=== PATIENT | male | born 1955 | race Caucasian/White ===

== ENCOUNTER 2018-07-15 09:32 | Inpatient (IN) ==
[2018-07-15] MEDS ORDERED: DILTIAZEM 50 MG/10 ML VIAL IV STA (10:03)
[2018-07-15] MEDS ORDERED: MAGNESIUM SULF RIDER 2 GM in PREMIX 1 EACH IV STA (10:03)
[2018-07-15] MEDS ORDERED: SODIUM CHLORIDE 0.9% 1,000 ML IV STA (10:03)
[2018-07-15] MEDS ORDERED: SODIUM CHLORIDE 0.9% 100 ML IV ONE (10:04)
[2018-07-15] MEDS ORDERED: DILTIAZEM 100 MG VIAL.ADD IV ONE (10:04)
[2018-07-15] MEDS ORDERED: DILTIAZEM 25 MG/5 ML VIAL IV ONE (10:04)
[2018-07-15 10:29] LABS: Basophils # 0.1 10*3/uL (0.0-0.2); Basophils % 0.5 % (0.0-0.8); Eosinophils # 0.1 10*3/uL (0.0-0.87); Eosinophils % 1.1 % (0.00-10.9); Hematocrit 35.3 VOL% (42.0-52.0); Hemoglobin 11.8 GM/DL (14.0-18.0); Immature Granulocytes % 0.4 %; Immature Granulocytes Absolute 0.04 #; Lymphocytes # 2.7 10*3/uL (1.4-4.0); Lymphocytes % 26.7 % (21.2-54.2); Mean Corpuscular HGB Conc 33.4 GM/DL (32-36); Mean Corpuscular Hemoglobin 33 PG (27-34); Mean Platelet Volume 9.9 FL (9.6-12.0); Monocytes # 1.1 10*3/uL (0.11-0.8); Monocytes % 10.7 % (1.7-12.7); Neutrophils # 6.1 10*3/uL (1.4-7.4); Neutrophils % 60.6 % (38.7-73.9); Platelet Count 169 T/CUMM (130-400); Red Blood Count 3.53 MC/CUMM (3.8-5.5); Red Cell Distribution Width 14.2 % (9.3-17.3)
[2018-07-15] MEDS ORDERED: DILTIAZEM INJ 100 MG in SODIUM CHLORIDE 0.9% 100 ML IV SCH (10:30)
[2018-07-15 11:15] LABS: Albumin 2.8 G/DL (3.4-5.0); Bilirubin,Total 0.6 MG/DL (0.2-1.0); Osmolality,Calculated 276.7 MOS/KG (273-304); Potassium 3.9 MMOL/L (3.5-5.1); Thyroid Stimulating Hormone 1.27 uIU/ml (0.358-3.74); Total Protein 6.5 G/DL (6.4-8.3)
[2018-07-15] MEDS ORDERED: ACETAMINOPHEN 325 MG TABLET PO PRN (11:59)
[2018-07-15] MEDS ORDERED: ONDANSETRON 4 MG/2 ML VIAL IV PRN (11:59)
[2018-07-15] MEDS ORDERED: PANTOPRAZOLE 40 MG VIAL IV SCH (12:00)
[2018-07-15] MEDS ORDERED: ENOXAPARIN 40 MG/0.4 ML SYRINGE SUBCUT SCH (12:00)
[2018-07-15] MEDS ORDERED: traZODone 50 MG TABLET PO PRN (12:48)
[2018-07-15] MEDS ORDERED: HALOPERIDOL 5 MG/ML AMP IM PRN ×2 (12:49→16:29)
[2018-07-15] MEDS: DEXTROSE 5% NACL 0.9% 1,000 ML IV SCH ×2 (13:17→21:27)
[2018-07-15] MEDS: DILTIAZEM 30 MG TABLET PO SCH ×3 (13:44→23:41)
[2018-07-15] MEDS: ENOXAPARIN 80 MG/0.8 ML SYRINGE SUBCUT SCH (13:44)
[2018-07-15] MEDS: LORazepam 2 MG/1 ML VIAL IV PRN ×5 (13:45→18:54)
[2018-07-15] MEDS: chlordiazePOXIDE 25 MG CAPSULE PO SCH ×2 (14:41→23:41)
[2018-07-15] MEDS: NICOTINE 7 MG/24 HR PATCH TRANSDERM SCH (15:42)
[2018-07-15 15:49] LABS: Barbiturates Screen,Urine Negative (Negative); Benzodiazepines Screen,Urine Positive (Negative); Cannabinoid Screen,Urine Negative (Negative); Opiate Screen,Urine Positive (Negative); Phencyclidine Screen,Urine Negative (Negative)
[2018-07-15] MEDS ORDERED: LORazepam 2 MG/1 ML VIAL IV PRN (15:52)
[2018-07-15] MEDS: ZIPRASIDONE 20 MG/1 ML VIAL IM PRN (18:54)
[2018-07-15] MEDS: QUEtiapine 100 MG TABLET PO SCH (23:41)
[2018-07-16] MEDS: ENOXAPARIN 80 MG/0.8 ML SYRINGE SUBCUT SCH (01:17)
[2018-07-16] MEDS: ZIPRASIDONE 20 MG/1 ML VIAL IM PRN ×3 (03:28→17:01)
[2018-07-16 03:33] LABS: Basophils % 0.5 % (0.0-0.8); Eosinophils # 0.3 10*3/uL (0.0-0.87); Eosinophils % 4.4 % (0.00-10.9); Immature Granulocytes % 0.2 %; Immature Granulocytes Absolute 0.01 #; Lymphocytes # 2.5 10*3/uL (1.4-4.0); Lymphocytes % 41.1 % (21.2-54.2); Mean Corpuscular Hemoglobin 33 PG (27-34); Mean Platelet Volume 10.5 FL (9.6-12.0); Monocytes # 0.6 10*3/uL (0.11-0.8); Monocytes % 9.7 % (1.7-12.7); Neutrophils # 2.7 10*3/uL (1.4-7.4); Neutrophils % 44.1 % (38.7-73.9); Platelet Count 178 T/CUMM (130-400); Red Blood Count 2.94 MC/CUMM (3.8-5.5); Red Cell Distribution Width 14.2 % (9.3-17.3); White Blood Count 6.1 T/CUMM (4-12)
[2018-07-16 03:34] LABS: Hematocrit 29.7 VOL% (42.0-52.0); Hemoglobin 9.8 GM/DL (14.0-18.0)
[2018-07-16 03:43] LABS: Albumin 2.3 G/DL (3.4-5.0); Bilirubin,Total 0.4 MG/DL (0.2-1.0); Osmolality,Calculated 278.4 MOS/KG (273-304); Potassium 3.4 MMOL/L (3.5-5.1); Total Protein 5.9 G/DL (6.4-8.3)
[2018-07-16] MEDS: DEXTROSE 5% NACL 0.9% 1,000 ML IV SCH ×2 (05:03→07:25)
[2018-07-16] MEDS ORDERED: INFLUENZA VIRUS VACCINE 0.5 ML SYRINGE IM ONE (07:00)
[2018-07-16] MEDS: chlordiazePOXIDE 25 MG CAPSULE PO SCH ×2 (08:11→14:15)
[2018-07-16] MEDS: DILTIAZEM 30 MG TABLET PO SCH (08:11)
[2018-07-16] MEDS: QUEtiapine 100 MG TABLET PO SCH (08:12)
[2018-07-16] MEDS: NICOTINE 7 MG/24 HR PATCH TRANSDERM SCH (08:12)
[2018-07-16] MEDS: SERTRALINE 50 MG TABLET PO SCH (08:12)
[2018-07-16] MEDS ORDERED: busPIRone 10 MG TABLET PO PRN (08:18)
[2018-07-16] MEDS: PANTOPRAZOLE 40 MG TABLET PO SCH (11:03)
[2018-07-16] MEDS: ASPIRIN EC 81 MG TABLET PO SCH (11:03)
[2018-07-16] MEDS: ENOXAPARIN 40 MG/0.4 ML SYRINGE SUBCUT SCH (11:52)
[2018-07-16] MEDS: POTASSIUM CHLORIDE 20 MEQ TABLET PO PRN ×3 (11:52→17:29)
[2018-07-16] MEDS ORDERED: DILTIAZEM 30 MG TABLET PO SCH (21:00)
[2018-07-17] MEDS: QUEtiapine 100 MG TABLET PO SCH ×2 (00:54→08:58)
[2018-07-17] MEDS: chlordiazePOXIDE 25 MG CAPSULE PO SCH ×2 (00:54→08:58)
[2018-07-17 04:57] LABS: Basophils # 0.1 10*3/uL (0.0-0.2); Basophils % 0.9 % (0.0-0.8); Eosinophils # 0.3 10*3/uL (0.0-0.87); Eosinophils % 4.7 % (0.00-10.9); Hematocrit 34.6 VOL% (42.0-52.0); Hemoglobin 11.3 GM/DL (14.0-18.0); Immature Granulocytes % 0.2 %; Immature Granulocytes Absolute 0.01 #; Lymphocytes # 2.1 10*3/uL (1.4-4.0); Lymphocytes % 37.4 % (21.2-54.2); Mean Corpuscular HGB Conc 32.7 GM/DL (32-36); Mean Corpuscular Hemoglobin 33 PG (27-34); Mean Corpuscular Volume 100.9 FL (87-102); Monocytes # 0.6 10*3/uL (0.11-0.8); Monocytes % 10.1 % (1.7-12.7); Neutrophils # 2.6 10*3/uL (1.4-7.4); Neutrophils % 46.7 % (38.7-73.9); Platelet Count 227 T/CUMM (130-400); Red Blood Count 3.43 MC/CUMM (3.8-5.5); Red Cell Distribution Width 14.2 % (9.3-17.3); White Blood Count 5.5 T/CUMM (4-12)
[2018-07-17 05:11] LABS: Calcium 8.2 MG/DL (8.5-10.1); Osmolality,Calculated 275.4 MOS/KG (273-304)
[2018-07-17] MEDS: DEXTROSE 5% NACL 0.9% 1,000 ML IV SCH (07:41)
[2018-07-17] MEDS: PANTOPRAZOLE 40 MG TABLET PO SCH (08:58)
[2018-07-17] MEDS: ENOXAPARIN 40 MG/0.4 ML SYRINGE SUBCUT SCH (08:58)
[2018-07-17] MEDS: ASPIRIN EC 81 MG TABLET PO SCH (08:58)
[2018-07-17] MEDS: NICOTINE 7 MG/24 HR PATCH TRANSDERM SCH (08:59)
[2018-07-17] MEDS: SERTRALINE 50 MG TABLET PO SCH (08:59)
[2018-07-17] MEDS ORDERED: DILTIAZEM CD 120 MG CAPSULE PO SCH (09:00)
[2018-07-17 11:50] VITALS: BP 98/60
== END 2018-07-17 14:35 | DRG 309 ==
LOC: N.ED 09:32 → N.EDINP 11:59 → SUATTDRO 11:59 → N.ICU 12:22 → N.2E 07-16 10:47
PROVIDERS: ADMIT Internal Medicine; ATTEND Internal Medicine

== ENCOUNTER 2018-12-06 18:32 | Observation (INO) ==
[2018-12-06] MEDS ORDERED: FLUMAZENIL 1 MG/10 ML VIAL IV STA (18:50)
[2018-12-06] MEDS ORDERED: ONDANSETRON 4 MG/2 ML VIAL IV STA (18:50)
[2018-12-06] MEDS ORDERED: SODIUM CHLORIDE 0.9% 1,000 ML IV STA (18:50)
[2018-12-06] MEDS ORDERED: ALBUTEROL NEB SOLN 5 MG/ML 20 ML/BOTTLE CONT NEB STA (18:53)
[2018-12-06] MEDS ORDERED: FLUMAZENIL 0.5 MG/5 ML VIAL IV ONE (19:20)
[2018-12-06 19:26] LABS: Basophils # 0.1 10*3/uL (0.0-0.2); Basophils % 0.5 % (0.0-0.8); Eosinophils # 0.2 10*3/uL (0.0-0.87); Eosinophils % 1.7 % (0.00-10.9); Hematocrit 38.6 VOL% (42.0-52.0); Hemoglobin 12.6 GM/DL (14.0-18.0); Immature Granulocytes % 0.3 %; Immature Granulocytes Absolute 0.03 #; Lymphocytes # 3.9 10*3/uL (1.4-4.0); Lymphocytes % 41.2 % (21.2-54.2); Mean Corpuscular HGB Conc 32.6 GM/DL (32-36); Mean Corpuscular Hemoglobin 33 PG (27-34); Mean Corpuscular Volume 100.3 FL (87-102); Mean Platelet Volume 9.7 FL (9.6-12.0); Monocytes # 0.8 10*3/uL (0.11-0.8); Monocytes % 8.1 % (1.7-12.7); Neutrophils # 4.6 10*3/uL (1.4-7.4); Neutrophils % 48.2 % (38.7-73.9); Platelet Count 206 T/CUMM (130-400); Red Blood Count 3.85 MC/CUMM (3.8-5.5); Red Cell Distribution Width 15.1 % (9.3-17.3); White Blood Count 9.5 T/CUMM (4-12)
[2018-12-06 19:40] LABS: PT Patient Result 10.5 SECS
[2018-12-06 19:46] LABS: Acetaminophen < 2.0 UG/ML (10-30); Salicylate < 2.8 MG/DL (2.8-20)
[2018-12-06 19:47] LABS: Alanine Aminotransferase 18 U/L (16-61); Albumin 3.4 G/DL (3.4-5.0); Alkaline Phosphatase 60 U/L (45-117); Aspartate Amino Transferase 10 U/L (0-37); Bilirubin,Total < 0.39 MG/DL (0.2-1.0); Blood Urea Nitrogen 19 MG/DL (7-18); Glucose 114 MG/DL (74-106); Osmolality,Calculated 285.1 MOS/KG (273-304); Potassium 3.8 MMOL/L (3.5-5.1); Sodium 142 MMOL/L (136-145); Total Protein 6.9 G/DL (6.4-8.3)
[2018-12-06 19:49] LABS: Troponin I < 0.015 NG/ML (0.00-0.045)
[2018-12-06 21:26] LABS: Apearance,Urine CLEAR (Clear); Bilirubin,Urine Negative (Negative); Blood, Urine Negative (Negative); Glucose,Urine (UA) Negative (Negative); Hyaline Casts,Urine 1 /LPF (0-3); Ketones,Urine Negative (Negative); Mucus,Urine Occasional /LPF (Occasional); Nitrite,Urine Negative (Negative); Protein,Urine Negative; RBC,Urine 2 /HPF (0-4); Squamous Epithelial Cell,Urine Occasional /HPF (0-10); Urine Color Yellow (Yellow); Urine Specific Gravity 1.032 (1.001-1.035); Urine Urobilinogen < 2.0 EU/DL (0.2-1.0); WBC,Urine <1 /HPF (0-6)
[2018-12-06 21:54] LABS: Barbiturates Screen,Urine Negative (Negative); Benzodiazepines Screen,Urine Positive (Negative); Cannabinoid Screen,Urine Negative (Negative); Opiate Screen,Urine Negative (Negative); Phencyclidine Screen,Urine Negative (Negative)
[2018-12-06] MEDS ORDERED: ONDANSETRON 4 MG/2 ML VIAL IV PRN (23:24)
[2018-12-06] MEDS ORDERED: DEXTROSE 50% 25 GM/50 ML SYRINGE IV PRN (23:28)
[2018-12-06] MEDS ORDERED: GLUCAGON 1 MG VIAL IM PRN (23:28)
[2018-12-06] MEDS ORDERED: SODIUM CHLORIDE 0.9% 1,000 ML IV SCH (23:30)
[2018-12-07] MEDS: INSULIN REGULAR 100 UNIT/ML SUBCUT SCH ×4 (02:11→16:27)
[2018-12-07] MEDS ORDERED: ENOXAPARIN 40 MG/0.4 ML SYRINGE SUBCUT SCH (08:00)
[2018-12-07 08:09] LABS: Basophils # 0.1 10*3/uL (0.0-0.2); Basophils % 0.7 % (0.0-0.8); Eosinophils # 0.3 10*3/uL (0.0-0.87); Eosinophils % 3.7 % (0.00-10.9); Hemoglobin 11.6 GM/DL (14.0-18.0); Immature Granulocytes % 0.1 %; Immature Granulocytes Absolute 0.01 #; Lymphocytes # 3.7 10*3/uL (1.4-4.0); Mean Corpuscular HGB Conc 32.2 GM/DL (32-36); Mean Corpuscular Hemoglobin 33 PG (27-34); Mean Corpuscular Volume 101.1 FL (87-102); Monocytes # 0.5 10*3/uL (0.11-0.8); Monocytes % 7.3 % (1.7-12.7); Neutrophils # 2.6 10*3/uL (1.4-7.4); Neutrophils % 36.2 % (38.7-73.9); Platelet Count 183 T/CUMM (130-400); Red Blood Count 3.56 MC/CUMM (3.8-5.5); Red Cell Distribution Width 15.4 % (9.3-17.3); White Blood Count 7.1 T/CUMM (4-12)
[2018-12-07 08:35] LABS: Acanthocytes Few; Atypical Lymphocytes Few; Eosinophils 2 % (0-10); Hypochromasia 1+; Lymphocytes 49 % (20-55); Macrocytosis Slight; Segmented Neutrophils 41 % (50-85); Total Cells Counted 100
[2018-12-07 08:36] LABS: Howell-Jolly Bodies Slight
[2018-12-07 08:37] LABS: Platelet Estimate Adequate
[2018-12-07 08:54] LABS: Calcium 8.2 MG/DL (8.5-10.1); Osmolality,Calculated 282.1 MOS/KG (273-304); Potassium 4.1 MMOL/L (3.5-5.1); Risk Ratio 2.72; Thyroid Stimulating Hormone 2.25 uIU/ml (0.358-3.74)
[2018-12-07] MEDS ORDERED: NICOTINE 14 MG/24 HR PATCH TRANSDERM SCH (09:00)
[2018-12-07] MEDS ORDERED: PANTOPRAZOLE 40 MG TABLET PO SCH (09:00)
[2018-12-07] MEDS ORDERED: NICOTINE 21 MG/24 HR PATCH TRANSDERM SCH (11:00)
[2018-12-07 12:12] VITALS: BP 99/53
[2018-12-07] MEDS ORDERED: DICLOFENAC POTASSIUM 50 MG PO SCH (21:00)
[2018-12-07] MEDS ORDERED: busPIRone 10 MG TABLET PO SCH (21:00)
[2018-12-07] MEDS ORDERED: QUEtiapine 100 MG TABLET PO SCH (21:00)
[2018-12-08] MEDS ORDERED: MEMANTINE 5 MG TABLET PO SCH (09:00)
[2018-12-08] MEDS ORDERED: DILTIAZEM CD 120 MG CAPSULE PO SCH (09:00)
[2018-12-08] MEDS ORDERED: SERTRALINE 50 MG TABLET PO SCH (09:00)
[2018-12-08] MEDS ORDERED: DONEPEZIL 5 MG TABLET PO SCH (09:00)
[2018-12-08] MEDS ORDERED: ASPIRIN EC 81 MG TABLET PO SCH (09:00)
== END 2018-12-07 18:00 ==
LOC: EDBD → EDUNIT# → N.ED 18:32 → N.EDINP 18:32 → N.2E 12-07 00:41
PROVIDERS: ADMIT Internal Medicine; ATTEND Internal Medicine

== ENCOUNTER 2020-12-16 12:57 | Inpatient (IN) ==
[2020-12-16 13:58] LABS: Basophils # 0.1 10*3/uL (0.0-0.2); Basophils % 0.5 % (0.0-0.8); Eosinophils # 0.4 10*3/uL (0.0-0.87); Eosinophils % 1.9 % (0.00-10.9); Hematocrit 43.9 VOL% (42.0-52.0); Hemoglobin 14.8 GM/DL (14.0-18.0); Immature Granulocytes Absolute 2.59 #; Lymphocytes # 5.1 10*3/uL (1.4-4.0); Lymphocytes % 25.5 % (21.2-54.2); Mean Corpuscular HGB Conc 33.7 GM/DL (32-36); Mean Corpuscular Volume 101.6 FL (87-102); Mean Platelet Volume 10.5 FL (9.6-12.0); Monocytes % 9.2 % (1.7-12.7); NRBC # 0.18 10*3/uL; Neutrophils % 49.9 % (38.7-73.9); Platelet Count 169 T/CUMM (130-400); Red Blood Count 4.32 MC/CUMM (3.8-5.5); Red Cell Distribution Width 14.4 % (9.3-17.3); White Blood Count 19.9 T/CUMM (4-12)
[2020-12-16 14:11] LABS: PT Patient Result 10.9 SECS (9.8-11.9)
[2020-12-16 14:15] LABS: Alanine Aminotransferase 36 U/L (16-61); Albumin 2.8 G/DL (3.4-5.0); Alkaline Phosphatase 98 U/L (45-117); Aspartate Amino Transferase 57 U/L (0-37); Bilirubin,Total < 0.39 MG/DL (0.2-1.0); Blood Urea Nitrogen 19 MG/DL (7-18); Calcium 8.8 MG/DL (8.5-10.1); Carbon Dioxide 28 MMOL/L (21-32); Estimated Glom Filtration Rate 101 ML/MIN; Glucose 82 MG/DL (74-106); Osmolality,Calculated 279.4 MOS/KG (273-304); Potassium 4.1 MMOL/L (3.5-5.1); Sodium 140 MMOL/L (136-145)
[2020-12-16 14:27] LABS: Band Neutrophils 13 % (0-10); Eosinophils 2 % (0-10); Nucleated Red Blood Cells 2 (0-5); Total Cells Counted 100
[2020-12-16 14:37] LABS: Lymphocytes 34 % (20-55); Metamyelocytes 2 %; Myelocytes 2 %; Segmented Neutrophils 47 % (50-85)
[2020-12-16 14:38] LABS: Polychromasia 1+
[2020-12-16 14:39] LABS: Ovalocytes Few; Platelet Estimate Normal
[2020-12-16] MEDS ORDERED: ONDANSETRON 4 MG/2 ML VIAL IV PRN (15:57)
[2020-12-16] MEDS ORDERED: GLUCAGON 1 MG VIAL IM PRN (15:57)
[2020-12-16] MEDS ORDERED: DEXTROSE 50% 25 GM/50 ML VIAL IV PRN (15:57)
[2020-12-16] MEDS: DONEPEZIL 10 MG TABLET PO SCH (21:18)
[2020-12-16] MEDS: ATORVASTATIN 10 MG TABLET PO SCH (21:18)
[2020-12-16] MEDS: ARIPiprazole 10 MG TABLET PO SCH (21:18)
[2020-12-16] MEDS: MELATONIN 3 MG TABLET PO SCH (21:18)
[2020-12-16] MEDS: AMIODARONE 200 MG TABLET PO SCH (21:18)
[2020-12-16] MEDS: INSULIN REGULAR 100 UNIT/ML SUBCUT SCH (21:23)
[2020-12-17 05:52] LABS: Basophils # 0.1 10*3/uL (0.0-0.2); Basophils % 0.4 % (0.0-0.8); Eosinophils # 0.4 10*3/uL (0.0-0.87); Eosinophils % 1.6 % (0.00-10.9); Hematocrit 46.5 VOL% (42.0-52.0); Immature Granulocytes % 13.4 %; Lymphocytes # 5.6 10*3/uL (1.4-4.0); Lymphocytes % 24.8 % (21.2-54.2); Mean Corpuscular HGB Conc 32.3 GM/DL (32-36); Mean Corpuscular Volume 104.5 FL (87-102); Monocytes % 11.9 % (1.7-12.7); Neutrophils % 47.9 % (38.7-73.9); Platelet Count 159 T/CUMM (130-400); Red Blood Count 4.45 MC/CUMM (3.8-5.5); Red Cell Distribution Width 14.5 % (9.3-17.3); White Blood Count 22.4 T/CUMM (4-12)
[2020-12-17] MEDS: SODIUM CHLORIDE 0.9% 1,000 ML IV SCH ×3 (06:04→22:14)
[2020-12-17] MEDS: CLINDAMYCIN INJ 900 MG in PREMIX 1 EACH IV SCH ×4 (06:08→22:14)
[2020-12-17 06:17] LABS: Acanthocytes Few; Band Neutrophils 8 % (0-10); Eosinophils 1 % (0-10); Hypochromasia 1+; Lymphocytes 25 % (20-55); Nucleated Red Blood Cells 2 (0-5); Segmented Neutrophils 56 % (50-85); Total Cells Counted 100
[2020-12-17 06:18] LABS: Microcytosis 1+
[2020-12-17 06:21] LABS: Bilirubin,Total 0.4 MG/DL (0.2-1.0); Calcium 9.7 MG/DL (8.5-10.1); Osmolality,Calculated 281.3 MOS/KG (273-304); Potassium 4.6 MMOL/L (3.5-5.1); Total Protein 7.4 G/DL (6.4-8.2)
[2020-12-17] MEDS: DEXTROSE 50% 25 GM/50 ML VIAL IV PRN (07:17)
[2020-12-17] MEDS: INSULIN REGULAR 100 UNIT/ML SUBCUT SCH ×3 (11:43→22:11)
[2020-12-17] MEDS: AMIODARONE 200 MG TABLET PO SCH ×2 (11:44→21:09)
[2020-12-17] MEDS: PANTOPRAZOLE 40 MG TABLET PO SCH (11:44)
[2020-12-17] MEDS: ARIPiprazole 10 MG TABLET PO SCH (21:08)
[2020-12-17] MEDS: DONEPEZIL 10 MG TABLET PO SCH (21:09)
[2020-12-17] MEDS: ATORVASTATIN 10 MG TABLET PO SCH (21:09)
[2020-12-17] MEDS: MELATONIN 3 MG TABLET PO SCH (21:09)
[2020-12-18 05:19] LABS: Basophils # 0.1 10*3/uL (0.0-0.2); Basophils % 0.3 % (0.0-0.8); Eosinophils # 0.3 10*3/uL (0.0-0.87); Eosinophils % 1.6 % (0.00-10.9); Hematocrit 40.9 VOL% (42.0-52.0); Hemoglobin 13.7 GM/DL (14.0-18.0); Immature Granulocytes % 16.4 %; Immature Granulocytes Absolute 3.44 #; Lymphocytes # 4.6 10*3/uL (1.4-4.0); Lymphocytes % 21.8 % (21.2-54.2); Mean Corpuscular HGB Conc 33.5 GM/DL (32-36); Mean Corpuscular Volume 100.7 FL (87-102); Mean Platelet Volume 10.7 FL (9.6-12.0); Monocytes % 12.9 % (1.7-12.7); Platelet Count 121 T/CUMM (130-400); Red Blood Count 4.06 MC/CUMM (3.8-5.5); Red Cell Distribution Width 14.4 % (9.3-17.3)
[2020-12-18 05:39] LABS: Calcium 8.7 MG/DL (8.5-10.1); Osmolality,Calculated 282.3 MOS/KG (273-304); Potassium 3.9 MMOL/L (3.5-5.1)
[2020-12-18 05:46] LABS: Acanthocytes Few; Band Neutrophils 6 % (0-10); Eosinophils 2 % (0-10); Lymphocytes 31 % (20-55); Metamyelocytes 2 %; Myelocytes 1 %; Nucleated Red Blood Cells 3 (0-5); Segmented Neutrophils 52 % (50-85); Total Cells Counted 100
[2020-12-18 05:47] LABS: Hypochromasia 1+; Microcytosis 1+; Ovalocytes Slight; Platelet Estimate Adequate
[2020-12-18] MEDS: CLINDAMYCIN INJ 900 MG in PREMIX 1 EACH IV SCH ×3 (06:02→22:06)
[2020-12-18] MEDS: DEXTROSE 50% 25 GM/50 ML VIAL IV PRN ×2 (07:08→10:15)
[2020-12-18] MEDS ORDERED: DEXTROSE 50% 25 GM/50 ML VIAL IV ONE ×2 (10:17→10:20)
[2020-12-18] MEDS: INSULIN REGULAR 100 UNIT/ML SUBCUT SCH ×4 (10:32→21:11)
[2020-12-18] MEDS: AMIODARONE 200 MG TABLET PO SCH ×2 (10:34→20:39)
[2020-12-18] MEDS: PANTOPRAZOLE 40 MG TABLET PO SCH (10:34)
[2020-12-18] MEDS ORDERED: LACTATED RINGERS 1,000 ML IV SCH (11:00)
[2020-12-18] MEDS ORDERED: fentaNYL 100 MCG/2 ML VIAL ONE (11:52)
[2020-12-18] MEDS ORDERED: PHENYLEPHRINE 1 MG/10 ML SYRINGE IV ONE (11:55)
[2020-12-18] MEDS ORDERED: SUCCINYLCHOLINE 200 MG/10 ML VIAL ONE (11:55)
[2020-12-18] MEDS ORDERED: propofoL 200 MG/20 ML VIAL IV ONE (11:55)
[2020-12-18] MEDS ORDERED: ONDANSETRON 4 MG/2 ML VIAL ONE (11:55)
[2020-12-18] MEDS ORDERED: LIDOCAINE 2% 5 ML VIAL ONE (11:55)
[2020-12-18] MEDS ORDERED: ETOMIDATE 40 MG/20 ML VIAL IV ONE ×2 (11:55)
[2020-12-18] MEDS ORDERED: ePHEDrine 50 MG/ML VIAL ONE (12:13)
[2020-12-18] MEDS ORDERED: GLYCOPYRROLATE 0.4 MG/2 ML VIAL ONE (12:13)
[2020-12-18] MEDS ORDERED: SEVOFLURANE 1 UNIT/15 MINUTE INH ONE ×4 (12:16→12:49)
[2020-12-18] MEDS ORDERED: ESMOLOL 100 MG/10 ML VIAL IV ONE (12:49)
[2020-12-18] MEDS ORDERED: LACTATED RINGERS 1,000 ML IV ONE (12:51)
[2020-12-18] MEDS ORDERED: ACETAMINOPHEN 1,000 MG/100 ML VIAL IV ONE (12:59)
[2020-12-18] MEDS: DEXTROSE 5% NACL 0.9% 1,000 ML IV SCH (17:00)
[2020-12-18] MEDS: SODIUM CHLORIDE 0.9% 1,000 ML IV SCH (17:42)
[2020-12-18] MEDS: ATORVASTATIN 10 MG TABLET PO SCH (20:39)
[2020-12-18] MEDS: ARIPiprazole 10 MG TABLET PO SCH (20:39)
[2020-12-18] MEDS: MELATONIN 3 MG TABLET PO SCH (20:39)
[2020-12-18] MEDS: DONEPEZIL 10 MG TABLET PO SCH (20:40)
[2020-12-19] MEDS: CLINDAMYCIN INJ 900 MG in PREMIX 1 EACH IV SCH ×3 (05:48→21:46)
[2020-12-19] MEDS: DEXTROSE 5% NACL 0.9% 1,000 ML IV SCH (05:48)
[2020-12-19 05:52] LABS: Basophils # 0.1 10*3/uL (0.0-0.2); Basophils % 0.3 % (0.0-0.8); Eosinophils # 0.4 10*3/uL (0.0-0.87); Eosinophils % 1.8 % (0.00-10.9); Hematocrit 35.9 VOL% (42.0-52.0); Hemoglobin 12.4 GM/DL (14.0-18.0); Immature Granulocytes % 14.9 %; Immature Granulocytes Absolute 3.23 #; Lymphocytes # 4.4 10*3/uL (1.4-4.0); Lymphocytes % 20.1 % (21.2-54.2); Mean Corpuscular HGB Conc 34.5 GM/DL (32-36); Mean Corpuscular Volume 100.6 FL (87-102); Mean Platelet Volume 11.1 FL (9.6-12.0); Monocytes % 13.8 % (1.7-12.7); NRBC # 0.44 10*3/uL; Neutrophils % 49.1 % (38.7-73.9); Platelet Count 99 T/CUMM (130-400); Red Blood Count 3.57 MC/CUMM (3.8-5.5); Red Cell Distribution Width 14.5 % (9.3-17.3); White Blood Count 21.7 T/CUMM (4-12)
[2020-12-19 06:04] LABS: Calcium 8.1 MG/DL (8.5-10.1); Osmolality,Calculated 274.8 MOS/KG (273-304); Potassium 4.1 MMOL/L (3.5-5.1)
[2020-12-19 06:43] LABS: Band Neutrophils 13 % (0-10); Eosinophils 1 % (0-10); Lymphocytes 17 % (20-55); Metamyelocytes 6 %; Nucleated Red Blood Cells 2 (0-5); Platelet Estimate Adequate; Polychromasia Slight; Segmented Neutrophils 59 % (50-85); Total Cells Counted 100
[2020-12-19] MEDS ORDERED: MAGNESIUM SULF RIDER 4 GM in PREMIX 1 EACH IV PRN (07:55)
[2020-12-19] MEDS: INSULIN REGULAR 100 UNIT/ML SUBCUT SCH ×4 (08:27→21:44)
[2020-12-19] MEDS: PANTOPRAZOLE 40 MG TABLET PO SCH (09:11)
[2020-12-19] MEDS: AMIODARONE 200 MG TABLET PO SCH ×2 (09:11→21:43)
[2020-12-19] MEDS: MAGNESIUM SULF RIDER 2 GM in PREMIX 1 EACH IV PRN (09:46)
[2020-12-19] MEDS ORDERED: MORPHINE 4 MG/1 ML VIAL IV PRN (09:50)
[2020-12-19] MEDS: ALBUTEROL 2.5 MG/3 ML NEB RESP TX PRN (13:25)
[2020-12-19] MEDS: ATORVASTATIN 10 MG TABLET PO SCH (21:43)
[2020-12-19] MEDS: ARIPiprazole 10 MG TABLET PO SCH (21:43)
[2020-12-19] MEDS: DONEPEZIL 10 MG TABLET PO SCH (21:43)
[2020-12-20] MEDS: MELATONIN 3 MG TABLET PO SCH ×2 (04:06→23:12)
[2020-12-20] MEDS: DEXTROSE 5% NACL 0.9% 1,000 ML IV SCH ×2 (05:35→19:01)
[2020-12-20] MEDS: CLINDAMYCIN INJ 900 MG in PREMIX 1 EACH IV SCH ×2 (05:36→13:47)
[2020-12-20 05:55] LABS: Basophils # 0.1 10*3/uL (0.0-0.2); Basophils % 0.8 % (0.0-0.8); Eosinophils # 0.1 10*3/uL (0.0-0.87); Eosinophils % 0.7 % (0.00-10.9); Hematocrit 33.6 VOL% (42.0-52.0); Hemoglobin 11.2 GM/DL (14.0-18.0); Immature Granulocytes % 11.4 %; Immature Granulocytes Absolute 1.68 #; Lymphocytes # 3.6 10*3/uL (1.4-4.0); Lymphocytes % 24.6 % (21.2-54.2); Mean Corpuscular HGB Conc 33.3 GM/DL (32-36); Mean Corpuscular Volume 103.4 FL (87-102); Mean Platelet Volume 11.3 FL (9.6-12.0); Monocytes % 13.9 % (1.7-12.7); NRBC # 0.25 10*3/uL; Neutrophils % 48.6 % (38.7-73.9); Platelet Count 69 T/CUMM (130-400); Red Blood Count 3.25 MC/CUMM (3.8-5.5); Red Cell Distribution Width 14.6 % (9.3-17.3); White Blood Count 14.8 T/CUMM (4-12)
[2020-12-20 06:38] LABS: Calcium 7.9 MG/DL (8.5-10.1); Osmolality,Calculated 274.5 MOS/KG (273-304); Potassium 3.4 MMOL/L (3.5-5.1)
[2020-12-20] MEDS: INSULIN REGULAR 100 UNIT/ML SUBCUT SCH ×4 (07:35→23:12)
[2020-12-20 08:30] LABS: Band Neutrophils 1 % (0-10); Lymphocytes 31 % (20-55); Metamyelocytes 2 %; Segmented Neutrophils 63 % (50-85); Total Cells Counted 100
[2020-12-20 08:32] LABS: Atypical Lymphocytes 1+; Nucleated Red Blood Cells 1 (0-5); Platelet Estimate Decreased
[2020-12-20] MEDS: PANTOPRAZOLE 40 MG TABLET PO SCH (09:06)
[2020-12-20] MEDS: AMIODARONE 200 MG TABLET PO SCH ×2 (09:06→21:37)
[2020-12-20] MEDS: ARIPiprazole 10 MG TABLET PO SCH (21:37)
[2020-12-20] MEDS: ATORVASTATIN 10 MG TABLET PO SCH (21:37)
[2020-12-20] MEDS: DONEPEZIL 10 MG TABLET PO SCH (22:10)
[2020-12-21] MEDS: ALBUTEROL 2.5 MG/3 ML NEB RESP TX PRN (01:41)
[2020-12-21] MEDS: CLINDAMYCIN INJ 900 MG in PREMIX 1 EACH IV SCH ×3 (01:48→18:17)
[2020-12-21] MEDS ORDERED: ACETAMINOPHEN 650 MG SUPP RECTAL PRN (02:06)
[2020-12-21 06:00] LABS: Basophils # 0.1 10*3/uL (0.0-0.2); Basophils % 0.9 % (0.0-0.8); Eosinophils % 0.3 % (0.00-10.9); Hemoglobin 10.6 GM/DL (14.0-18.0); Immature Granulocytes % 7.3 %; Immature Granulocytes Absolute 0.65 #; Lymphocytes # 1.9 10*3/uL (1.4-4.0); Lymphocytes % 21.1 % (21.2-54.2); Mean Corpuscular HGB Conc 33.1 GM/DL (32-36); Mean Corpuscular Volume 103.2 FL (87-102); Mean Platelet Volume 11.2 FL (9.6-12.0); Monocytes % 13.4 % (1.7-12.7); NRBC # 0.16 10*3/uL; Platelet Count 58 T/CUMM (130-400); Red Cell Distribution Width 14.6 % (9.3-17.3); White Blood Count 8.9 T/CUMM (4-12)
[2020-12-21 06:17] LABS: Calcium 7.5 MG/DL (8.5-10.1); Osmolality,Calculated 284.3 MOS/KG (273-304); Potassium 3.4 MMOL/L (3.5-5.1)
[2020-12-21 06:51] LABS: Atypical Lymphocytes Few; Band Neutrophils 11 % (0-10); Eosinophils 2 % (0-10); Hypochromasia 1+; Lymphocytes 22 % (20-55); Metamyelocytes 1 %; Microcytosis 1+; Myelocytes 1 %; Nucleated Red Blood Cells 2 (0-5); Ovalocytes Slight; Segmented Neutrophils 55 % (50-85); Total Cells Counted 100
[2020-12-21 06:52] LABS: Acanthocytes Few; Burr Cells Slight; Platelet Estimate Decreased
[2020-12-21] MEDS ORDERED: POTASSIUM CHLORIDE 20 MEQ/15 ML UDCUP PER TUBE PRN (07:09)
[2020-12-21] MEDS: PANTOPRAZOLE 40 MG TABLET PO SCH (09:17)
[2020-12-21] MEDS: MAGNESIUM SULF RIDER 2 GM in PREMIX 1 EACH IV PRN (09:17)
[2020-12-21] MEDS: INSULIN REGULAR 100 UNIT/ML SUBCUT SCH ×4 (10:41→20:34)
[2020-12-21] MEDS: AMIODARONE 200 MG TABLET PO SCH ×2 (17:24→20:29)
[2020-12-21] MEDS: DEXTROSE 5% NACL 0.9% 1,000 ML IV SCH (17:25)
[2020-12-21] MEDS: ARIPiprazole 10 MG TABLET PO SCH (20:28)
[2020-12-21] MEDS: DONEPEZIL 10 MG TABLET PO SCH (20:29)
[2020-12-21] MEDS: MELATONIN 3 MG TABLET PO SCH (20:29)
[2020-12-21] MEDS: ATORVASTATIN 10 MG TABLET PO SCH (20:29)
[2020-12-22] MEDS: DEXTROSE 5% NACL 0.9% 1,000 ML IV SCH ×4 (00:55→22:08)
[2020-12-22] MEDS: CLINDAMYCIN INJ 900 MG in PREMIX 1 EACH IV SCH ×3 (02:57→17:28)
[2020-12-22 06:05] LABS: Calcium 8.4 MG/DL (8.5-10.1); Osmolality,Calculated 272.7 MOS/KG (273-304); Potassium 4.6 MMOL/L (3.5-5.1)
[2020-12-22] MEDS: INSULIN REGULAR 100 UNIT/ML SUBCUT SCH ×4 (08:10→20:47)
[2020-12-22 09:02] LABS: Basophils # 0.1 10*3/uL (0.0-0.2); Eosinophils # 0.1 10*3/uL (0.0-0.87); Eosinophils % 0.8 % (0.00-10.9); Hematocrit 36.5 VOL% (42.0-52.0); Hemoglobin 12.1 GM/DL (14.0-18.0); Immature Granulocytes % 10.9 %; Immature Granulocytes Absolute 1.29 #; Lymphocytes % 25.4 % (21.2-54.2); Mean Corpuscular HGB Conc 33.2 GM/DL (32-36); Mean Corpuscular Volume 103.4 FL (87-102); Mean Platelet Volume 12.4 FL (9.6-12.0); Monocytes % 11.5 % (1.7-12.7); NRBC # 0.21 10*3/uL; Neutrophils % 50.4 % (38.7-73.9); Platelet Count 56 T/CUMM (130-400); Red Blood Count 3.53 MC/CUMM (3.8-5.5); Red Cell Distribution Width 14.8 % (9.3-17.3); White Blood Count 11.9 T/CUMM (4-12)
[2020-12-22] MEDS: AMIODARONE 200 MG TABLET PO SCH ×2 (09:05→20:42)
[2020-12-22] MEDS: PANTOPRAZOLE 40 MG TABLET PO SCH (09:05)
[2020-12-22 09:26] LABS: Atypical Lymphocytes Few; Band Neutrophils 5 % (0-10); Eosinophils 1 % (0-10); Hypochromasia Slight; Lymphocytes 28 % (20-55); Microcytosis 1+; Nucleated Red Blood Cells 1 (0-5); Platelet Estimate Decreased; Segmented Neutrophils 58 % (50-85); Total Cells Counted 100
[2020-12-22] MEDS: APIXABAN 2.5 MG TABLET PO SCH (20:42)
[2020-12-22] MEDS: ATORVASTATIN 10 MG TABLET PO SCH (20:42)
[2020-12-22] MEDS: ARIPiprazole 10 MG TABLET PO SCH (20:42)
[2020-12-22] MEDS: DONEPEZIL 10 MG TABLET PO SCH (20:42)
[2020-12-22] MEDS: MELATONIN 3 MG TABLET PO SCH (20:43)
[2020-12-23] MEDS: CLINDAMYCIN INJ 900 MG in PREMIX 1 EACH IV SCH ×2 (03:04→09:01)
[2020-12-23 05:22] LABS: Basophils % 0.5 % (0.0-0.8); Eosinophils # 0.1 10*3/uL (0.0-0.87); Eosinophils % 0.6 % (0.00-10.9); Hematocrit 29.4 VOL% (42.0-52.0); Immature Granulocytes Absolute 1.19 #; Lymphocytes # 2.1 10*3/uL (1.4-4.0); Lymphocytes % 24.9 % (21.2-54.2); Mean Platelet Volume 11.8 FL (9.6-12.0); NRBC # 0.16 10*3/uL; Platelet Count 70 T/CUMM (130-400); Red Blood Count 2.94 MC/CUMM (3.8-5.5); Red Cell Distribution Width 14.6 % (9.3-17.3); White Blood Count 8.5 T/CUMM (4-12)
[2020-12-23 05:40] LABS: Calcium 7.7 MG/DL (8.5-10.1); Osmolality,Calculated 283.1 MOS/KG (273-304); Potassium 3.4 MMOL/L (3.5-5.1)
[2020-12-23 05:44] LABS: Band Neutrophils 5 % (0-10); Eosinophils 1 % (0-10); Hypochromasia Slight; Lymphocytes 26 % (20-55); Microcytosis Slight; Nucleated Red Blood Cells 3 (0-5); Platelet Estimate Decreased; Segmented Neutrophils 59 % (50-85); Total Cells Counted 100
[2020-12-23 05:45] LABS: Atypical Lymphocytes Few
[2020-12-23] MEDS: INSULIN REGULAR 100 UNIT/ML SUBCUT SCH ×2 (07:29→11:03)
[2020-12-23] MEDS ORDERED: OMEPRAZOLE ODT 20 MG TABLET PO SCH (07:30)
[2020-12-23] MEDS: AMIODARONE 200 MG TABLET PO SCH (07:59)
[2020-12-23] MEDS: APIXABAN 2.5 MG TABLET PO SCH (07:59)
[2020-12-23] MEDS ORDERED: POTASSIUM CHLORIDE 20 MEQ/15 ML UDCUP PER TUBE ONE (08:30)
[2020-12-23] MEDS: DEXTROSE 5% NACL 0.9% 1,000 ML IV SCH (10:33)
[2020-12-23 11:21] VITALS: BP 124/67
== END 2020-12-23 12:55 | DRG 824 ==
LOC: EDUNIT# → EDBD → N.EDINP 12:57 → N.ED 12:57 → SUATTDRO 16:50 → N.3E 17:04 → SUATTDRO 12-18 11:23
PROVIDERS: ADMIT Internal Medicine; ATTEND Internal Medicine Geriatric Medicine